=== PATIENT | female | born 1980 | race Caucasian/White ===

== ENCOUNTER 2017-06-23 23:49 | Emergency (ER) | payer OTHER ==
[~2017-06-23] VITALS: Ht 162.6 cm; Wt 61.2 kg
--- NOTE | ~2017-06-23 | EKG ---
PATIENT: THERESA BREWER UNIT #: [id number] Ventricular Rate: 88 BPM Atrial Rate: 88 BPM P-R Interval: 130 ms QRS Duration: 96 ms Q-T Interval: 380 ms QTC Calculation(Bezet): 459 ms P [place]: 77 degrees Calculated R [place]: 53 degrees Calculated T [place]: 25 degrees Diagnosis Line: Normal sinus rhythm Diagnosis Line: Nonspecific ST abnormality Diagnosis Line: Abnormal ECG Diagnosis Line: No previous ECGs available Diagnosis Line: Confirmed by DAMIAN HO MD ([id number]) on Diagnosis Line: 06/28/2017 10:40:05 AM INTERPRETING MD: VIC HARVEY
--- NOTE | ~2017-06-23 | CT16 ---
[facility] A Service of [facility] RADIOLOGY TEXT RESULTS PATIENT: THERESA BREWER LOCATION: SED : 82 UNIT #: [id number] AGE: [address]: Reza Nolan MD SEX: F ORDER DR: [id number] [id number] E MR#: [id number] #: [id number] NAME: THERESA BREWER : 1980 SEX: F STUDY DATE/TIME: 06/24/2017 1:56 UNIT: SED ROOM: STUDY DESCRIPTION: CT Angio Chest for PE Attending Physician: Reza Nolan M.D. Ordering Physician: Reza Nolan M.D. Primary Care Physician: Primary Care Physician No MEDICAL IMAGING REPORT This report is preliminary unless electronic signature is present. EXAM CTA chest PE protocol INDICATION Left-sided chest pain for the past 20 minutes. PROCEDURE Contrast-enhanced CTA of the chest attention on opacification of the pulmonary arteries. Coronal 3-D MIP and sagittal reformatted images reconstructed and submitted. This CT examination was performed with one or more of the following radiation dose reduction techniques: automatic exposure control, adjustment of mA and/or kV according to patient size, and iterative reconstruction. COMPARISON 08/09/2015. FINDINGS No evidence for pulmonary embolus or acute aortic injury. No adenopathy. No acute findings in the included upper abdomen. Lungs are clear. No aggressive appearing bone lesion. IMPRESSION No acute findings. No evidence for pulmonary embolus. Dictated by... Arpit Mosher M.D. THIS IS AN ELECTRONICALLY VERIFIED REPORT Arpit Mosher M.D. at 06/24/2017 10:06 PM EED/shira [facility] A Service [facility] RADIOLOGY TEXT RESULTS PATIENT: THERESA BREWER LOCATION: SED : 82 UNIT #: [id number] AGE: [address]: Reza Nolan MD SEX: F ORDER DR: TD: 06/24/2017 08:06 JOB #: [id number] MEDICAL IMAGING REPORT Page 1 of 1
[~2017-06-23 23:49] MED LIST: ADDERALL20 MG PO; ALBUTEROL17 GM INH; ALPRAZOLAM PO; AUGMENTIN875 M1 PO; CAMBIA50 MG PO; DEPAKOTE PO; DIFLUCAN100 MG PO; FIORCET PO; FLEXERIL10 MG PO; HYDROMET SYRUP480 ML PO; IMITREX PO; NUVARING V1 VAG.RING VG; PARAFON FORTE500 M2 PO; PHENERGAN25 M1 PO; PREDNISONE PO; ULTRAM PO; URISTAT; VYVANSE20 MG PO
[2017-06-24] MEDS ORDERED: AMITRYPTYLINE PO (00:01)
[2017-06-24 00:23] LABS: BASOPHIL% 0.5 % (0-2.5); DIFF IND NO; EOSINOPHIL# 0.2 X10e3 (0-0.7); HEMATOCRIT 40.8 % (35.0-45.0); HEMOGLOBIN 13.8 gm/dL (12.0-16.0); LYMPHOCYTE# 2.5 X10e3 (1.0-3.5); MEAN CELL VOLUME 86.1 FL (83-96); MEAN CORPUSCULAR HGB CONC 33.7 g/dL (30-36); MEAN PLATELET VOLUME 7.7 FL (6.5-11.5); MONOCYTE# 0.7 X10e3 (0-1.0); MONOCYTE% 9.2 % (3.0-12.0); NEUTROPHIL# 4.6 X10e3 (1.5-7.1); NEUTROPHIL% 57.3 % (40-75); PLATELET COUNT 229 X10e3 (140-420); RED BLOOD COUNT 4.74 X10e (3.90-5.30); RED CELL DISTRIBUTION WIDTH 12.6 % (11.0-15.5)
[2017-06-24 00:28] LABS: PROTHROMBIN TIME (PATIENT) 11.4 SECONDS (9.5-12.4)
[2017-06-24 00:32] LABS: POC - CKMB 1.5 ng/mL (0.0-7.9)
[2017-06-24 00:33] LABS: POC - MYOGLOBIN 50.1 ng/mL (0.0-169.0); POC - TROPONIN <0.05 ng/mL (<=0.05)
[2017-06-24 00:34] LABS: ALBUMIN SERUM 4.8 g/dL (3.5-5.0); ALKALINE PHOSPHATASE 51 U/L (32-92); ALT (SGPT) 19 U/L (10-40); AST (SGOT) 20 U/L (10-42); BILIRUBIN,TOTAL 0.2 mg/dL (0.2-2.0); BLOOD UREA NITROGEN 18 mg/dL (9-23); CALCIUM SERUM 8.5 mg/dL (8.4-10.2); CARBON DIOXIDE 26 mmol/L (22-31); CHLORIDE 99 mmol/L (100-111); CREATININE SERUM 0.8 mg/dL (0.6-1.4); GLOM FILT RATE Estimated 94.9 mL/min (>60); GLUCOSE FASTING 93 mg/dL (70-110); POTASSIUM 3.3 mmol/L (3.5-5.1); PROTEIN TOTAL SERUM 7.5 g/dL (6.0-8.3); SODIUM 128 mmol/L (135-145)
[2017-06-24 00:36] LABS: BILIRUBIN, DIRECT <0.1 mg/dL (0.0-0.2); BILIRUBIN,INDIRECT 0.1 mg/dL (0.0-0.9); PARTIAL THROMBOPLASTIN TIME 30.9 SECONDS (25.6-38.1)
[2017-06-24 02:50] LABS: POC - CKMB 1.1 ng/mL (0.0-7.9); POC - TROPONIN <0.05 ng/mL (<=0.05)
== END 2017-06-24 03:08 | disposition home or self-care (01) ==
LOC: SED 23:49
PROVIDERS: Emergency Medicine
DX: R07.9 Chest pain, unspecified (principal); F90.9 Attention-deficit hyperactivity disorder, unspecified type
CPT/HCPCS: 36415; 71275; 80048; 80076; 82553; 83874; 84484; 84703; 85025; 85379; 85610; 85730; 93005; 96360; 99285; Q9967